=== PATIENT | male | born 1945 | race Caucasian/White ===

== ENCOUNTER → 2020-03-02 | Day surgery (SDC) | payer MEDICARE, OTHER ==
[2020-02-26 09:43] LABS: BASOPHILS # (AUTO) 0.1 (0.0-0.1); BASOPHILS % 0.9 % (0.0-1.0); EOSINOPHILS # (AUTO) 0.8 (0.0-0.4); EOSINOPHILS % 10.8 % (0.0-6.0); HEMATOCRIT 37.8 % (38.2-49.6); LYMPHOCYTES # (AUTO) 1.9 (1.0-3.2); LYMPHOCYTES % 24.7 % (18.0-39.1); MEAN CORPUSCULAR HEMOGLOBIN 30.7 pg (28-32); MEAN CORPUSCULAR HGB CONC 34.4 g/dL (31-35); MEAN CORPUSCULAR VOLUME 89.2 fL (81-99); MONOCYTES # (AUTO) 0.6 (0.2-0.8); MONOCYTES % 8.1 % (4.4-11.3); NEUTROPHILS # (AUTO) 4.2 (2.1-6.9); NEUTROPHILS % 55.4 % (38.7-80.0); PLATELET COUNT 290 x10e3/uL (140-360); RED BLOOD COUNT 4.24 x10e6/uL (4.3-5.7); RED CELL DISTRIBUTION WIDTH 12.5 % (11.7-14.4)
[2020-02-26 10:04] LABS: ALBUMIN/GLOBULIN RATIO 1.3 (0.8-2.0); ANION GAP 13.3 mmol/L (8-16); CALCIUM 10.1 mg/dL (8.4-10.2); CREATININE, SERUM 1.2 mg/dL (0.72-1.25); POTASSIUM 4.3 mmol/L (3.5-5.1)
[~2020-03-02] VITALS: Ht 180.3 cm; Wt 93.9 kg
[2020-03-02] VITALS (10 sets, daily range): BP systolic 108–146; BP diastolic 62–87
[~2020-03-02] MED LIST: ALPRAZOLAM 0.5 MG TAB ONE; AMLODIPINE BESYL5 MG PO; ASPIR 8181 MG PO; ASPIRIN 325 MG TAB ONE; ATORVASTATIN CA20 MG PO; BIVALRIUDIN 250 MG/VIAL VIAL IV ONE; CLOPIDOGREL75 MG PO; DIPHENHYDRAMINE HCL 25 MG CAP ONE; FENTANYL CITRATE/PF 100MCG/2 ML INJ ONE; FLUTICASONE PRO16 GM; GARLIC1000 MG PO; HEPARIN SOD (PORCINE) 1000 UNIT/ML 30ML ONE; HEPARIN SOD/SOD CHLORIDE 2,000 ML ONE; HYDROCHLOROTHIA25 MG PO; IOPAMIDOL 300MG/ML 100 ML INFUS..BTL IV ONE; LIDOCAINE HCL 2% LOCAL 20 ML VIAL ONE; LOSARTAN POTAS100 MG PO; MIDAZOLAM HCL 2 MG/2 ML VIAL ONE; NITROGLYCERIN/D5W 200 MCG/ML 250 ML ONE; PRASUGREL 10 MG TAB ONE; SODIUM CHLORIDE 0.9% 1000ML 1,000 ML ONE; SODIUM CHLORIDE 0.9% 50ML 0 ML ONE; SYMBICORT 16010.2 GM INH; VERAPAMIL HCL 2.5 MG/ML 2 ML VIAL ONE; VITAMIN D PO
--- NOTE | 2020-03-02 12:42 | NUR ---
1242pm RECEIVING NOTE [employer] RECOV[employer] DEPT............................................................... Bedside report received from HARDIK Crane. Identifierx2. Alert oriented and appropriate, PERRLA, respirations even and unlabored to room air. Pulses x4 extremities equal and strong. Pedal pulses PT/DP X4 and marked. Cap fill brisk < 3 sec. Rt TRband (radial)and rt pedal approach TR band ok decrease air at 230pm dc home at 430pm. Notified of dc time per phone. Skin warm and dry integrity appears dry and intact. IV 20g to left ac. Presents healthy w/o s/s of infiltration or complaint. Abdomen soft and supple. pt offered toileting, denies need to urinate or defecate. No personal affects with patient. Currently w/o complaint of pain or need ds/rn-[id number]
--- NOTE | 2020-03-02 14:30 | NUR ---
1430p RADIAL/PEDAL COMPRESSION REMOVAL NOTE: Initial Cuff volume 12 cc/7cc 1430p -2cc Removed No hematoma/bleeding noted with normal neurovascular function. 1445p -5cc Removed No hematoma/ bleeding noted with normal neurovascular function. 1500p -5cc Removed No hematoma/bleeding noted with normal neurovascular function. 1430p -2cc removed rt pedal site /No hematoma/bleeding noted with normal neurovascular function 1445p -5cc removed rt pedal site /No hematoma/bleeding noted with normal neurovascular function dressing 2x2 with Tegaderm . Air removal completed. Stasis achieved sterile 2x2,Tegaderm, Coban dressing No hematoma, bleeding noted with normal neurovascular function. Wrist splint in place. Pt instructed on POC. Ds/Rn
--- NOTE | 2020-03-02 16:00 | NUR ---
1600pm SPRAY OPERATOR RECOVERY DISCHARGE NURSING NOTE Pt meets DC criteria. RT TR band /rt pedal pulse site assessed for s/s of complication and presence of hematoma. Skin warm, dry, no discolor, and pulses present. IV removed from left ac at 100cchr . Distal tip appears intact. VS WNL. Pt denies pain, sob, or need at this time. Family at bedside Review of discharge paperwork and follow up instructions. verbalized understanding. Pt to wheelchair and transported to front of hospital. Transferred to private vehicle under own strength w/o incident with DC paperwork in hand. -yarelis/pawel
--- NOTE | 2020-03-02 16:55 | Operative Report ---
DATE OF PROCEDURE: 03/02/2020 SURGEON: Jaguar Faith MD INDICATION: Peripheral arterial disease, claudication of the right lower extremity. PROCEDURES PERFORMED: 1. Abdominal aorta catheter placement, abdominal aortogram. 2. Unilateral extremity angiogram of the right leg with third-order catheter placement from the right femoral artery to the right superficial femoral artery. 3. Ultrasound guided access sheath placement to the right radial and right anterior tibial artery. 4. Atherectomy and drug-coated balloon angioplasty of the right femoral artery. 5. Secondary thrombectomy of the right femoral artery. 6. Conscious sedation administration and monitoring and recovery by laboratory animal caretaker RN, supervision by for 65 minutes. COMPLICATIONS: None. RECOMMENDATIONS: Dual-antiplatelet therapy for life. DESCRIPTION OF PROCEDURE: Access obtained in the right radial artery using ultrasound guidance. A 6-Slovak sheath was placed, access obtained in the right anterior tibial artery. A 6-Slovak sheath was placed. Abdominal aortogram demonstrated widely patent abdominal aorta and iliacs bilaterally. The sheath was then advanced in the right radial artery to the right femoral artery. 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 The stent in the mid right superficial femoral artery was completely occluded. A decision was made to intervene on the right femoral artery. The patient received intravenous heparin 10,000 units for anticoagulation. 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 Large amounts of visible thrombus with manual aspiration thrombectomy was needed. Balloon angioplasty with a 5 mm drug-coated balloon as well as 6 mm nondrug-coated balloon was performed. Excellent end result, three-vessel runoff. No complications. TR band applied in the right wrist and ankle. The patient discharged home same day. Jaguar Faith MD KSB/MODL /[id number]
== END | disposition home or self-care (01) ==
LOC: CATH LAB 10:00
PROVIDERS: ATTEND Internal Medicine Interventional Cardiology
DX: I70.211 Atherosclerosis of native arteries of extremities with intermittent claudication, right leg (principal); I70.92 Chronic total occlusion of artery of the extremities; I10 Essential (primary) hypertension; J44.9 Chronic obstructive pulmonary disease, unspecified; Z91.048 Other nonmedicinal substance allergy status; Z01.812 Encounter for preprocedural laboratory examination; Z11.59 Encounter for screening for other viral diseases; Z79.02 Long term (current) use of antithrombotics/antiplatelets; Z79.82 Long term (current) use of aspirin; Z68.30 Body mass index [BMI] 30.0-30.9, adult
CPT/HCPCS: 36415; 37186; 37225; 75625; 76937; 80053; 85025; 87635; C1714; C1725; C1769 ×2; C1887; C2623; J1644; J2001; J2250; J3010; J7030; Q9967; 36247; 37224; 75710; 99152; 99153; J0583